=== PATIENT | female | born 1965 | race Caucasian/White ===

== ENCOUNTER → 2016-07-28 | Outpatient (CLI) | payer BC | LOC: BHSO 09:57 | DX: F41.1 Generalized anxiety disorder (principal) ==

== ENCOUNTER → 2016-09-22 | Outpatient (CLI) | payer BC | LOC: BHSO 08:50 | DX: F41.1 Generalized anxiety disorder (principal) ==

== ENCOUNTER → 2016-11-27 | Outpatient (CLI) | payer BC | LOC: BHSO 08:59 | DX: F41.1 Generalized anxiety disorder (principal) ==

== ENCOUNTER → 2017-01-08 | Outpatient (CLI) | payer BC | LOC: BHSO 09:14 | DX: F41.1 Generalized anxiety disorder (principal) ==

== ENCOUNTER → 2017-03-27 | Outpatient (CLI) | payer BC | LOC: MC.RAD 16:48 | DX: Z12.31 Encounter for screening mammogram for malignant neoplasm of breast (principal) ==

== ENCOUNTER → 2017-04-16 | Outpatient (CLI) | payer BC | LOC: BHSO 08:56 | DX: F41.1 Generalized anxiety disorder (principal) ==

== ENCOUNTER 2018-03-18 16:00 | Outpatient (RCR) | payer BC | END 2018-04-08 09:09 | disposition home or self-care (01) | LOC: WSPT 16:00 | DX: H81.01 Meniere's disease, right ear (principal); H81.91 Unspecified disorder of vestibular function, right ear; R26.89 Other abnormalities of gait and mobility; Z79.2 Long term (current) use of antibiotics; Z79.1 Long term (current) use of non-steroidal anti-inflammatories (NSAID); Z79.82 Long term (current) use of aspirin; Z79.899 Other long term (current) drug therapy ==

== ENCOUNTER → 2020-08-31 | Outpatient (CLI) | payer BC ==
[~2020-08-31] MED LIST: ASPIRIN 81M81 MG/TA2 PO; BYSTOLIC2.5 MG PO; CELEXA10 MG PO; SYNTHROID 0.0.025 MG PO; TOPROL XL 25MG25 MG PO; ULTRAM 50MG TAB50 MG PO
== END ==
LOC: MC.RAD
DX: Z12.31 Encounter for screening mammogram for malignant neoplasm of breast (principal)

== ENCOUNTER 2020-11-16 13:44 | Observation (INO) | payer BC ==
[2020-11-16] VITALS (9 sets, daily range): BP systolic 122–140; BP diastolic 64–85; PULSE 60–71; TEMP 62–97.8
[~2020-11-16] VITALS: Ht 167.6 cm; Wt 104.5 kg
[2020-11-16 14:24] LABS: COLLECTION METHOD CLEAN CATCH
[2020-11-16 14:26] LABS: BASO % 0.3 % (0.0-2.0); EOS # 0.1 (0.0-0.7); EOS % 0.9 % (0-4.0); GRAN # 9.8 (1.4-6.5); HEMATOCRIT 43.5 % (37.0-47.0); LYMPH # 1.4 (1.2-3.4); LYMPH % 11.5 % (20.0-51.0); MEAN CELL VOLUME 92 fl (80.0-100.0); MEAN CORPUSCULAR HEMOGLOBIN 30 pg (27.0-31.0); MEAN CORPUSCULAR HGB CONC 32 g/dl (33.0-37.0); MONO # 1.1 (0.1-0.6); PLATELET COUNT 330 K/mm3 (130-400); RED BLOOD COUNT 4.72 M/mm3 (4.10-5.30); REDCELL DISTRIBUTION WIDTH-CV 13.3 % (11.5-14.5)
[2020-11-16 14:30] LABS: PH 6 (5-8); SQUAMOUS EPITHELIAL 0-2 /hpf; URINE APPEARANCE Clear; URINE BACTERIA Rare /hpf; URINE BILIRUBIN Negative (NEGATIVE); URINE BLOOD Negative (NEGATIVE); URINE COLOR Yellow; URINE GLUCOSE Negative (NEGATIVE); URINE KETONE Negative (NEGATIVE); URINE LEUKOCYTE ESTERASE Negative (NEGATIVE); URINE NITRATE Negative (NEGATIVE); URINE PROTEIN(semi-quant) Negative (NEGATIVE); URINE RBC 0-2 /hpf; URINE UROBILINOGEN Negative (NEGATIVE)
[2020-11-16] MEDS ORDERED: BYSTOLIC2.5 MG PO (14:33)
[2020-11-16] MEDS ORDERED: TOPROL XL 25MG25 MG PO (14:33)
[2020-11-16] MEDS ORDERED: ASPIRIN 81M81 MG/TA2 PO (14:34)
[2020-11-16] MEDS ORDERED: SYNTHROID 0.0.025 MG PO (14:34)
[2020-11-16] MEDS ORDERED: CELEXA10 MG PO (14:34)
[2020-11-16 14:45] LABS: ALBUMIN 4.7 gm/dL (3.5-5.0); BILIRUBIN,TOTAL 0.8 mg/dL (0.0-1.0); C-REACTIVE PROTEIN 2.9 mg/dL (0.0-0.9); CALCIUM 9.2 mg/dL (8.4-10.2); CREATININE, serum 0.68 (0.52-1.25); POTASSIUM 3.3 mmol/L (3.4-5.0); TOTAL PROTEIN 7.7 gm/dL (6.4-8.2)
[2020-11-17 00:10] VITALS: BP 121/53; PULSE 61
[2020-11-17 00:25] VITALS: BP 119/62; PULSE 63; TEMP 97.5
--- NOTE | 2020-11-17 04:53 | NUR ---
PRN PAIN MEDICATION ADMINISTERED REQUESTED BY PATIENT PER DRCayla'S ORDERS. V/S STABLE, PATIENT ALERT AND ORIENTED, AND DENIES NAUSEA. NO REQUESTS OR CONCERNS VERBALIZED BY PATIENT AT THIS TIME.
[2020-11-17 05:03] VITALS: BP 114/61; PULSE 59; TEMP 97.9
[2020-11-17] MEDS ORDERED: ULTRAM 50MG TAB50 MG PO (07:20)
[2020-11-17 07:58] VITALS: BP 103/70; PULSE 70; TEMP 97.9
--- NOTE | 2020-11-17 08:00 | NUR ---
Patient resting in bed at this time. Patient is alert and oriented, answers questions appropriately. Incisions are [place]. Patient reports that pain is well controlled at this time. Denies further needs, call light within reach.
--- NOTE | 2020-11-17 10:30 | NUR ---
Discharge teaching completed. Discussed follow up appointment, discharge medications, and discharge instructions. Patient verbalized understanding. Administered PRN pain medicaiton prior to discharge per patient request. Patient confirmed all belongings had been gathered, patient escorted to ED entrance via wheel chair and patient entered a private vehicle.
== END 2020-11-17 10:46 | disposition home or self-care (01) ==
LOC: COL.ER 13:44 → SURG 18:52 → COL.ER 18:52 → OR 18:52 → SURG 11-17 10:46
PROVIDERS: Physician Assistant; ADMIT Surgery
DX: K35.80 Unspecified acute appendicitis (principal); I10 Essential (primary) hypertension; E03.9 Hypothyroidism, unspecified; F32.9 Major depressive disorder, single episode, unspecified; Z86.718 Personal history of other venous thrombosis and embolism; Z79.82 Long term (current) use of aspirin; Z79.899 Other long term (current) drug therapy; Z79.890 Hormone replacement therapy
CPT/HCPCS: G0378; J1885; J2405; J2543; J2704; J3010; J7030; Q9967

== ENCOUNTER 2022-03-15 10:00 | Outpatient (RCR) | payer BC ==
[2022-03-08 13:00] VITALS: BP 146/80; PULSE 69; TEMP 97.9
[~2022-03-15] VITALS: Ht 167.6 cm; Wt 111.6 kg
[~2022-03-15 10:00] MED LIST changes: +ANTIVERT 25MG25 MG PO; +HYGROTON 2525 MG/TAB; +MAGNESIUM GLYC100 MG PO; +MULTI VITAMINS1 TAB PO; +PRIL40 PO; +VITAMINC1000TA
[2022-03-15 10:10] VITALS: BP 122/87; PULSE 88; TEMP 98.6
[2022-03-15] MEDS ORDERED: FERROUS SU325 MG/TAB PO (10:14)
== END 2022-03-15 10:51 ==
LOC: EUO 10:00
DX: D50.9 Iron deficiency anemia, unspecified (principal)
CPT/HCPCS: J1756